=== PATIENT | female | born 1970 | race Caucasian/White ===

== ENCOUNTER 2019-02-16 01:55 | Emergency (ER) | payer OTHER ==
[~2019-02-16] VITALS: Ht 157.5 cm; Wt 81.6 kg
[~2019-02-16 01:55] MED LIST: CRESTOR10 MG PO; HUMALOG100 UNIT/3 SC; LAMICTAL100 MG PO; LANTUS 3ML100 UNITS/ SQ
== END 2019-02-16 02:36 | disposition left against medical advice (07) ==
LOC: ER 01:55
DX: E11.65 Type 2 diabetes mellitus with hyperglycemia (principal)
CPT/HCPCS: 36415; 82948